=== PATIENT | male | born 1970 | race African-American/Black ===

== ENCOUNTER 2021-08-08 18:16 | Emergency (ER) | payer MEDICAID ==
[~2021-08-08] VITALS: Ht 170.2 cm; Wt 81.0 kg
[2021-08-08 18:58] VITALS: BP 125/83
== END 2021-08-08 20:33 | disposition left against medical advice (07) ==
LOC: ER 18:16
DX: R21 Rash and other nonspecific skin eruption (principal); Z53.21 Procedure and treatment not carried out due to patient leaving prior to being seen by health care provider

== ENCOUNTER 2021-08-27 00:42 | Emergency (ER) | payer MEDICAID ==
[~2021-08-27] VITALS: Ht 170.2 cm; Wt 77.0 kg
[2021-08-27] MEDS ORDERED: ACETAMINOPHEN 325MG TABLET PO ONE (01:30)
[2021-08-27] MEDS ORDERED: CEPH500C2 MT (03:05)
[2021-08-27] MEDS ORDERED: TOPUD MT (03:05)
[2021-08-27] MEDS ORDERED: CEPHALEXIN 250MG CAPSULE PO ONE (03:15)
[2021-08-27 03:33] VITALS: BP 111/76
== END 2021-08-27 03:35 | disposition home or self-care (01) ==
LOC: ER 00:42
DX: L03.116 Cellulitis of left lower limb (principal)
CPT/HCPCS: 73562; 99283